=== PATIENT | male | born 1990 | race Hispanic/Latino ===

== ENCOUNTER 2018-09-30 01:05 | Emergency (ER) | payer OTHER ==
[2018-09-30] MEDS ORDERED: DiphenhydrAMINE 50 mg/ml Inj IV STA (01:38)
[2018-09-30] MEDS ORDERED: DiphenhydrAMINE 50 mg/ml Inj ONE (01:46)
[2018-09-30 02:23] LABS: BASO % 0.2 % (0.0-2.0); EOS # 0.2 K/uL (0.0-0.7); EOS % 1.6 % (0.0-4.0); HEMOGLOBIN 16.7 g/dL (12.0-18.0); LYMPH # 2.2 K/uL (1.0-4.3); LYMPH % 19.9 % (20.0-40.0); MEAN CELL VOLUME 89.4 fl (80.0-94.0); MEAN CORPUSCULAR HGB CONC 33.5 g/dL (33.0-37.0); MONO # 0.8 K/uL (0.0-0.8); NEUT # 8.1 K/uL (1.8-7.0); NEUT % 71.3 % (50.0-75.0); NRBC % 0.2 % (0.0-0.0); RBC 5.57 Mil/uL (4.40-5.90); RED CELL DISTRIBUTION WIDTH 13.4 % (11.5-14.5); WHITE BLOOD COUNT 11.3 K/uL (4.8-10.8)
[2018-09-30 02:31] LABS: ALB/GLOB RATIO 1.4 (1.0-2.1); ALBUMIN 4.9 g/dL (3.5-5.0); ALT/SGPT 62 U/L (21-72); AST/SGOT 33 U/L (17-59); BLOOD UREA NITROGEN 19 mg/dl (9-20); CALCIUM 9.9 mg/dL (8.4-10.2); GFR NON-AFRICAN AMERICAN > 60
--- NOTE | 2018-09-30 02:47 | ED PDOC ---
HPI: Skin/Bite Injury Time Seen by Provider: 09/30/18 02:41 Chief Complaint (Nursing): Allergic Reaction Chief Complaint (Provider): rash History Per: Patient History/Exam Limitations: no limitations Onset/Duration Of Symptoms: Days (2 weeks), Waxing/Waning Quality Of Symptoms: Painful, Itching Additional Complaint(s): 28 y/o male presents for evaluation of intermittent rash x 2 weeks. Patient states he initially noticed rash on palms of hands, with associated itching and pain at times. Patient states in the last two days he has been breaking out into hives in other places, including back of neck and head. Patient states tonight while at work he was sitting on a pail and hit a few bumps and then had an "itch" to his buttock and thigh area, and after scratching noticed swelling to areas. Denies fever, nausea/vomiting, easy bruising/bleeding, cough, conges tion. Past Medical History Reviewed: Historical Data, Nursing Documentation, Vital Signs Vital Signs: Last Vital Signs Temp 98.9 F 09/30/18 01:12 Pulse 88 09/30/18 01:12 Resp 16 09/30/18 01:12 BP 172/117 H 09/30/18 01:12 Pulse Ox 98 09/30/18 01:12 - Medical History PMH: No Chronic Diseases - Surgical History Surgical History: No Surg Hx - Family History Family History: States: No Known Family Hx - Living Arrangements Living Arrangements: With Family - Home Medications Home Medications: Ambulatory Orders Medication Instructions Recorded Cetirizine HCl [Zyrtec] 10 mg PO DAILY #7 capsule 09/30/18 Famotidine [Pepcid] 20 mg PO BID #8 tab 09/30/18 Prednisone 50 mg PO DAILY #4 tablet 09/30/18 - Allergies Allergies/Adverse Reactions: Allergies Allergy/AdvReac Type Severity Reaction Status Date / Time No Known Allergies Allergy Verified 09/30/18 08:17 Review of Systems ROS Statement: Except As Marked, All Systems Reviewed And Found Negative Skin: Positive for: Rash Physical Exam - Reviewed Nursing Documentation Reviewed: Yes Vital Signs Reviewed: Yes - Physical Exam Appears: Positive for: Well, Non-toxic, No Acute Distress Head Exam: Positive for: ATRAUMATIC, NORMAL INSPECTION, NORMOCEPHALIC Skin: Positive for: Rash (macular rash b/l palms, nontender. hives noted upper back, neck. Firm erythematous mass noted left interglueal area, smaller similar mass on right intergluteal area; nontender. Raised erythematous area left inner thigh) Eye Exam: Positive for: Normal appearance ENT: Positive for: Normal ENT Inspection Cardiovascular/Chest: Positive for: Regular Rate, Rhythm Respiratory: Positive for: Normal Breath Sounds Gastrointestinal/Abdominal: Positive for: Normal Exam Back: Positive for: Normal Inspection Extremity: Positive for: Normal ROM Neurologic/Psych: Positive for: Alert, Oriented (x3) - Laboratory Results Result Diagrams: 09/30/18 02:17 09/30/18 02:17 - ECG O2 Sat by Pulse Oximetry: 98 - Progress ED Course And Treament: -cbc -cmp -pt/ptt -IV solumedrol 125mg -IV pepcid 20mg -IV benadryl 50mg 3:00 Patient resting comfortably; states itching resolved. Rash on hands resolved. Rash on upper back/neck resolved. Rash on inter-gluteal areas improved, still remain nontender. 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
[2018-09-30 03:16] VITALS: BP 140/84; PULSE 71; RESP 18; TEMP 99
[2018-10-01 04:06] VITALS: O2SAT 98
== END 2018-09-30 03:10 | disposition home or self-care (01) ==
LOC: H.ER 01:05 → MERGE 01:05 → H.ER 03:10
DX: R21 Rash and other nonspecific skin eruption (principal)
CPT/HCPCS: 80053; 85025; 96374; 96375; 99283; J1200; J2930